=== PATIENT | female | born 1980 | race Caucasian/White ===

== ENCOUNTER 2017-07-20 18:14 | Emergency (ER) | payer OTHER ==
[~2017-07-20] VITALS: Ht 162.6 cm; Wt 73.8 kg
[~2017-07-20 18:14] MED LIST: ANUSOL-HC21 GM PR; ERGOCALCIF50000 UNIT PO; HYDROCODON-ACE1 EAC7 PO; NOHOMEMEDS; PERCOCET 5/31 TABLET PO; TORADOL10 MG PO
[2017-07-20 21:42] VITALS: BP 226/140
== END 2017-07-20 22:13 | disposition home or self-care (01) ==
LOC: EME 18:14
DX: M25.562 Pain in left knee (principal); I10 Essential (primary) hypertension; Z91.040 Latex allergy status
CPT/HCPCS: 93971; 99281; 99285